=== PATIENT | male | born 1980 | race Caucasian/White ===

== ENCOUNTER 2020-04-28 09:56 | Outpatient (CLI) | payer BC ==
--- NOTE | 2020-04-28 13:24 | RAD ---
ABDOMEN 1 VIEW: HISTORY: Left-sided abdominal pain. History of ureteral calculus. FINDINGS: Previously noted left renal calculi are not evident on this plain film examination. No bowel obstruc tion or other acute process. IMPRESSION: No overt calculus. POS: [facility]
--- NOTE | 2020-04-28 13:27 | ULT ---
RENAL ULTRASOUND: 04/01/20 COMPARISON: None. HISTORY: Frequent urination, history of a left sided renal stone disease. TECHNIQUE: Multiplanar levi scale sonographic imaging of the kidneys and urinary bladder obtained. FINDINGS: Right kidney measures 11.3 x 6.3 x 6.3 cm with a cortical thickness of approximately 1.5 cm. No hydr onephrosis, stone or mass lesion noted on the right. The left kidney measures 11.9 x 6.3 x 5.8 cm. No hydronephrosis seen on the left. The left renal pelv is is slightly prominent. Punctate renal calculi seen on recent CT within the lower pole of the left kidney cannot be visualized on this examination, likely technical in nature. Prevoid urinary bladder volume is 295 mL. postvoid urinary bladder volume is 25 mL. The manager inventory r eports documenting/visualizing bilateral ureteral jets. IMPRESSION: No hydronephrosis. Please see above discussion. POS: [facility]
== END 2020-04-28 09:57 | disposition home or self-care (01) ==
LOC: SCSULT 09:56
PROVIDERS: ATTEND Urology
DX: N20.1 Calculus of ureter (principal); M10.9 Gout, unspecified; R35.0 Frequency of micturition
CPT/HCPCS: 74018; 76770